=== PATIENT | male | born 1985 | race Caucasian/White ===

== ENCOUNTER 2021-03-31 10:05 | Observation (INO) | payer OTHER ==
[2021-03-31 10:30] LABS: Absolute Neutrophil Ct (ANC) 11.01 (1.4-6.9); BASOPHIL % 0.4 % (0.0-0.4); Basophil (Absolute #) 0.05 (0-0.4); Eosinophil % 0.2 % (0.00-5.0); Eosinophil (Absolute #) 0.03 (0-0.5); Hematocrit 44.9 % (42-50); Hemoglobin 15.1 gm/dl (12.5-18.0); Lymphocyte (Absolute #) 1.56 (1.0-4.6); Lymphocytes % 11.1 % (24.0-44.0); Mean Cell Volume 91.6 fl (78-100); Mean Corpuscular Hemoglobin 30.8 pg (26-32); Mean Corpuscular Hgb Concent. 33.6 g/dl (32-36); Monocyte (Absolute #) 1.41 (0.0-1.3); Neutrophil % 78.3 % (36.0-66.0); Platelet Count 324 K/mm3 (150-450); Red Cell Distribution Width 13.4 % (11.5-14.0); White Blood Count 14.1 K/mm3 (4.0-10.5)
[2021-03-31] MEDS ORDERED: Zofran 4 MG/2 ML VIAL IV ONE (10:32)
[2021-03-31] MEDS ORDERED: TORAdol 30 mg Injection IV ONE (10:32)
[2021-03-31] MEDS ORDERED: Sodium Chloride 0.9% 1000 ML 1,000 ML IV STA ×2 (10:32→12:07)
[2021-03-31] MEDS ORDERED: TORAdol 30 mg Injection ONE (10:35)
[2021-03-31] MEDS ORDERED: Sodium Chloride 0.9% 1000 ML 1,000 ML ONE ×2 (10:35→12:11)
[2021-03-31] MEDS ORDERED: Zofran 4 MG/2 ML VIAL ONE (10:35)
[2021-03-31 10:37] LABS: ALBUMIN 4.8 g/dL (3.5-5.0); ALKALINE PHOSPHATASE 81 U/L (38-126); ANION GAP 17.5 MEQ/L (5-15); BLOOD UREA NITROGEN 11 mg/dL (9-20); CHLORIDE 97 mmol/L (98-107); Calcium 10.1 mg/dL (8.4-10.2); Carbon Dioxide 26 mmol/L (22-30); Creatinine 1 1.39 mg/dL (0.66-1.25); EST GLOMERULAR FILTRATION RATE > 60.0 ML/MIN; Glucose 107 mg/dL (74-106); Potassium 4.4 mmol/L (3.5-5.1); SGOT/AST 24 U/L (17-59); SGPT/ALT 27 U/L (0-50); SODIUM 136 mmol/L (137-145); Total Protein 8.3 g/dL (6.3-8.2)
--- NOTE | 2021-03-31 10:38 | ERPHSYRPT ---
- History of Present Illness Time Seen by Provider: 03/31/21 10:15 Historian: patient Exam Limitations: physical impairment Patient Subjective Stated Complaint: lower abd pain and bilateral flank pain Triage Nursing Assessment: pt to ED c/o lower abd pain and bilateral flank pain onset Friday. reports attempting to take norco 5 for pain relief. rates 8/10 pain now. c/o urinary retention and constipation since Friday as well as intermittent nausea. abd non tender and soft. states the only relief he has found is taking warm showers. reports marijuana use daily. Physician History: 35 years old male presented in the ER with chief complaint of bilateral flank pain and lower quadrant pain for the last 5 days, gradually worsening, moderate to severe intensity, sharp nature, associated with nausea but no vomiting. Has been taking [place] with no significant relief. Partial relief with warm to hot water shower. Does report no bowel movement and having some difficulty urination for 4 days and feels as if he is passing kidney stone but no history of stones in the past. Timing/Duration: day(s) (5), gradual onset, worse Activities at Onset: rest Quality: sharpness Abdominal Pain Onset Location: RLQ, LLQ, flank Pain Radiation: back Severity of Pain-Max: moderate Severity of Pain-Current: severe Modifying Factors: Worsens With: movement, palpation, urinating, position Associated Symptoms: back, nausea, No diarrhea, No shortness of breath, No vomiting Previous symptoms: no prior history Allergies/Adverse Reactions: morphine Allergy (Verified 03/31/21 10:26) "makes me stop breathing cause of my COPD" tramadol Allergy (Verified 03/31/21 10:26) Home Medications: Amlodipine Besylate 5 mg [Norvasc 5 mg] 10 mg PO DAILY 03/31/21 [History] Diazepam [Valium] 10 mg PO DAILY 03/31/21 [History] Divalproex Sodium [Divalproex Sodium ER] 500 mg PO DAILY 03/31/21 [History] Hx Tetanus, Diphtheria Vaccination/Date Given: Yes Hx Influenza Vaccination/Date Given: Yes Hx Pneumococcal Vaccination/Date Given: No Immunizations Up to Date: Yes Travel Risk - International Travel Have you traveled outside of the country in past 3 weeks: No - Coronavirus Screening Are you exhibiting any of the following symptoms?: No Close contact with a COVID-19 positive Pt in past 14-21 Days: No - Vaccine Status Have you recieved a Covid-19 vaccination: Yes [place]: Pfizer - Vaccination Dates Date of 2cond Vaccination (if applicable): november - Review of Systems Constitutional: No Symptoms, Fatigue Eyes: No Symptoms Ears, Nose, & Throat: No Symptoms Respiratory: No Symptoms Cardiac: No Symptoms Abdominal/Gastrointestinal: Abdominal Pain, Nausea, Constipation Genitourinary Symptoms: Dysuria, Flank Pain Musculoskeletal: No Symptoms Skin: No Symptoms Neurological: No Symptoms Psychological: No Symptoms Endocrine: No Symptoms Hematologic/Lymphatic: No Symptoms Immunological/Allergic: No Symptoms - Past Medical History Pertinent Past Medical History: Yes Cardiac History: Hypertension Respiratory History: COPD Psycho-Social History: Bipolar Other Medical History: manic, personality disorder - Past Surgical History Past Surgical History: No - Social History Smoking Status: Never smoker Exposure to second hand smoke: No Drug Use: marijuana Patient Lives Alone: No - Nursing Vital Signs Nursing Vital Signs: Initial Vital Signs Temperature 98.5 F 03/31/21 10:14 Pulse Rate 119 H 03/31/21 10:14 Respiratory Rate 20 03/31/21 10:14 Blood Pressure 142/103 03/31/21 10:14 O2 Sat by Pulse Oximetry 100 03/31/21 10:14 Pain Scale Pain Intensity 7 - Physical Exam General Appearance: no apparent distress, alert, anxiety Eye Exam: PERRL/EOMI, eyes nml inspection Ears, Nose, Throat Exam: normal ENT inspection, pharynx normal Neck Exam: normal inspection, supple, full range of motion Respiratory Exam: normal breath sounds, lungs clear Cardiovascular Exam: normal heart sounds, tachycardia Gastrointestinal/Abdomen Exam: soft, normal bowel sounds, tenderness (Generalized tenderness without rebound) Back Exam: normal inspection, normal range of motion, CVA tenderness (Bilateral) Extremity Exam: normal inspection, normal range of motion Neurologic Exam: alert, oriented x 3, cooperative Skin Exam: normal color SpO2 Interpretation: normal SpO2: 100 O2 Delivery: Room Air Ordered Tests: Active Orders 24 hr Category Date Time Status IV Insertion STAT Care 03/31/21 10:11 Active NPO (ED) STAT Care 03/31/21 10:32 Active ABDOMEN AND PELVIS W/0 CONTRAS [CT] Stat Exams 03/31/21 10:33 Taken BLOOD CULTURE Stat Lab 03/31/21 12:37 Received CBC W DIFF Stat Lab 03/31/21 10:11 Completed CMP Stat Lab 03/31/21 10:11 Completed LIPASE Stat Lab 03/31/21 10:32 Completed UA W/RFX UR CULTURE Stat Lab 03/31/21 10:11 Ordered Urine Triage Profile Stat Lab 03/31/21 10:13 Ordered Medication Summary Discontinued Medications Generic Name Dose Route Start Last Admin Trade Name Sherly PRN Reason Stop Dose Admin Sodium Chloride 1,000 mls @ 999 mls/hr 03/31/21 10:32 03/31/21 11:39 Sodium Chloride 0.9% 1000 Ml IV 03/31/21 11:32 Infused .Q1H1M STA Infusion Sodium Chloride Confirm 03/31/21 10:35 Sodium Chloride 0.9% 1000 Ml Administered 03/31/21 10:36 Dose 1,000 mls @ ud .ROUTE .STK-MED ONE Sodium Chloride 1,000 mls @ 999 mls/hr 03/31/21 12:07 03/31/21 12:11 Sodium Chloride 0.9% 1000 Ml IV 03/31/21 13:07 999 mls/hr .Q1H1M STA Administration Sodium Chloride Confirm 03/31/21 12:11 Sodium Chloride 0.9% 1000 Ml Administered 03/31/21 12:12 Dose 1,000 mls @ ud .ROUTE .STK-MED ONE Ceftriaxone Sodium/Dextrose 2 g in 50 mls @ 100 mls/hr 03/31/21 12:22 03/31/21 13:10 Rocephin 2 Gm-D5w 50ml Bag IV 03/31/21 12:51 200 ml/hr STAT STA 200 mls/hr Administration Ceftriaxone Sodium/Dextrose Confirm 03/31/21 13:09 Rocephin 2 Gm-D5w 50ml Bag Administered 03/31/21 13:10 Dose 2 g in 50 mls @ ud IV .STK-MED ONE Ketorolac Tromethamine 30 mg 03/31/21 10:32 03/31/21 10:38 Ketorolac Tromethamine 30 Mg/Ml Inj IV 03/31/21 10:33 30 mg STAT ONE Administration Ketorolac Tromethamine Confirm 03/31/21 10:35 Ketorolac Tromethamine 30 Mg/Ml Inj Administered 03/31/21 10:36 Dose 30 mg .ROUTE .STK-MED ONE Ondansetron HCl 4 mg 03/31/21 10:32 03/31/21 10:38 Ondansetron Hcl 4 Mg/2 Ml Vial IV 03/31/21 10:33 4 mg STAT ONE Administration Ondansetron HCl Confirm 03/31/21 10:35 Ondansetron Hcl 4 Mg/2 Ml Vial Administered 03/31/21 10:36 Dose 4 mg .ROUTE .K-MED ONE Lab/Rad Data: Laboratory Result Diagrams 03/31/21 10:11 03/31/21 10:11 Laboratory Results 03/31/21 03/31/21 03/31/21 Range/Units 10:32 10:11 10:11 WBC 14.1 H (4.0-10.5) K/mm3 RBC 4.90 (4.1-5.6) M/mm3 Hgb 15.1 (12.5-18.0) gm/dl Hct 44.9 (42-50) % MCV 91.6 (78-100) fl MCH 30.8 (26-32) pg MCHC 33.6 (32-36) g/dl RDW 13.4 (11.5-14.0) % Plt Count 324 (150-450) K/mm3 MPV 10.0 (7.5-11.0) fl Gran % 78.3 H (36.0-66.0) % Eos # (Auto) 0.03 (0-0.5) Absolute Lymphs (auto) 1.56 (1.0-4.6) Absolute Monos (auto) 1.41 H (0.0-1.3) Lymphocytes % 11.1 L (24.0-44.0) % Monocytes % 10.0 (0.0-12.0) % Eosinophils % 0.2 (0.00-5.0) % Basophils % 0.4 (0.0-0.4) % Absolute Granulocytes 11.01 H (1.4-6.9) Basophils # 0.05 (0-0.4) Sodium 136 L (137-145) mmol/L Potassium 4.4 (3.5-5.1) mmol/L Chloride 97 L (98-107) mmol/L Carbon Dioxide 26 (22-30) mmol/L Anion Gap 17.5 H (5-15) MEQ/L BUN 11 (9-20) mg/dL Creatinine 1.39 H (0.66-1.25) mg/dL Estimated GFR > 60.0 ML/MIN Glucose 107 H (74-106) mg/dL Calcium 10.1 (8.4-10.2) mg/dL Total Bilirubin 0.60 (0.2-1.3) mg/dL AST 24 (17-59) U/L ALT 27 (0-50) U/L Alkaline Phosphatase 81 (38-126) U/L Serum Total Protein 8.3 H (6.3-8.2) g/dL Albumin 4.8 (3.5-5.0) g/dL Lipase 31 (23-300) U/L - Progress Progress: improved, pain not gone completely, re-examined Progress Note: 03/31/21 13:17 He is given Toradol for symptomatic relief along with fluids. Work-up showed white count of 14, mild JAVI and CT consistent with bilateral perinephric stranding suggesting pyelonephritis. Given a dose of Rocephin in the ER and will continue on. Discussed with , reviewed history, work-up and patient is accepted for admission. Discussed with : Izzy Will see patient in: hospital (observation) Counseled pt/family regarding: drug and/or alcohol abuse, lab results, diagnosis, rad results, smoking cessation - Departure Departure Disposition: Observation Clinical Impression: Acute pyelonephritis Condition: Stable Critical Care Time: No Referrals: TANA MYERS MD [Primary Care Provider] -
[2021-03-31] MEDS ORDERED: ROCEPHIN 2 Gm-D5w 50ML BAG** 2 G/50 ML IVPB IV STA (12:22)
[2021-03-31] MEDS ORDERED: ROCEPHIN 2 Gm-D5w 50ML BAG** 2 G/50 ML IVPB IV ONE (13:09)
[2021-03-31] MEDS ORDERED: DUONEB 0.5-3 MG/3 ml Neb IH PRN (14:37)
[2021-03-31] MEDS ORDERED: Zofran 4 MG/2 ML VIAL IV PRN (14:37)
[2021-03-31 14:44] LABS: Appearance SLIGHTLY CLOUDY (CLEAR); Bacteria MANY /HPF (NEGATIVE); Bilirubin NEGATIVE (NEGATIVE); Blood MODERATE Ery/ul (0-5); Epithelial Cells RARE /HPF (FEW); Glucose NEGATIVE (NEGATIVE); Ketones NEGATIVE (NEGATIVE); Leukocyte Esterase MODERATE (NEGATIVE); Mucus SLIGHT /HPF (NEGATIVE); Nitrite POSITIVE (NEGATIVE); Protein,Urine Dip 30 (Negative); Specific Gravity 1.008 (1.005-1.025); Urobilinogen NEGATIVE mg/dL (0-1); WBC 51-100 /HPF (0-5)
[2021-03-31 14:57] LABS: Barbiturate,Urine NEGATIVE (NEGATIVE); Benzodiazepine,Urine POSITIVE (NEGATIVE); Methadone,Urine NEGATIVE (NEGATIVE); Opiate,Urine NEGATIVE (NEGATIVE); PCP,Urine NEGATIVE (NEGATIVE); THC,Urine POSITIVE (NEGATIVE)
[2021-03-31 15:03] LABS: Cocaine,Urine NEGATIVE (NEGATIVE)
[2021-03-31 15:14] LABS: Amphetamine,Urine POSITIVE (NEGATIVE)
[2021-03-31] MEDS: Sodium Chloride 0.9% 1000 ML 1,000 ML IV SCH (16:03)
[2021-03-31] MEDS: Valium 5 MG PO SCH ×2 (16:03→21:53)
--- NOTE | 2021-03-31 17:49 | PCM.HP ---
History of Present Illness - Chief Complaint Chief Complaint: Pyelonephritis/Colitis History of Present Illness: is a 35 year old male complaint of bilateral flank pain and lower quadrant pain for the last 5 days, gradually worsening, moderate to severe intensity, sharp nature, associated with nausea but no vomiting. Has been taking Follett with no significant relief. Partial relief with warm to hot water shower. Does report no bowel movement and having some difficulty urination for 4 days and feels as if he is passing kidney stone but no history of stones in the past. - Review of Systems Constitutional: Fever, No Chills Eyes: No Symptoms Ears, Nose, & Throat: No Symptoms Respiratory: No Cough, No Short Of Breath Cardiac: No Chest Pain, No Edema, No Syncope Abdominal/Gastrointestinal: No Abdominal Pain, No Nausea, No Vomiting, No Diarrhea Genitourinary Symptoms: Dysuria, Frequency, Hesitancy, Urgency Musculoskeletal: No Back Pain, No Neck Pain Skin: No Rash Neurological: No Dizziness, No Focal Weakness, No Sensory Changes Psychological: No Symptoms Endocrine: No Symptoms Hematologic/Lymphatic: No Symptoms Immunological/Allergic: No Symptoms Medications & Allergies Home Medications: Home Medication List Albuterol Common Canister [Ventolin Common Canister] 2 inh IH QID PRN PRN 03/31/21 [History Confirmed 03/31/21] Amlodipine Besylate 5 mg [Norvasc 5 mg] 5 mg PO DAILY 03/31/21 [History Confirmed 03/31/21] Benazepril HCl 10 mg [Lotensin 10 MG] 10 mg PO DAILY 03/31/21 [History Confirmed 03/31/21] Diazepam [Valium] 10 mg PO TID 03/31/21 [History Confirmed 03/31/21] Divalproex Sodium [Divalproex Sodium ER] 1,000 mg PO DAILY 03/31/21 [History Confirmed 03/31/21] Trazodone HCl 150 mg PO HS 03/31/21 [History Confirmed 03/31/21] Allergies/Adverse Reactions: Allergies Allergy/AdvReac Type Severity Reaction Status Date / Time morphine Allergy Shortness Verified 03/31/21 14:44 of Breath tramadol AdvReac Verified 03/31/21 14:44 - Past Medical History Past Medical History: Yes Neurological History: Seizures ENT History: No Pertinent History Cardiac History: Hypertension Respiratory History: COPD Endocrine Medical History: No Pertinent History Musculoskelatal History: Arthritis GI Medical History: Colitis History: Other Pyscho-Social History: Anxiety, Bipolar, Depression Male Reproductive Disorders: No Pertinent History Comment: manic, personality disorder - Past Surgical History Past Surgical History: Yes Neuro Surgical History: No Pertinent History Cardiac History: No Pertinent History Respiratory Surgery: No Pertinent History GI Surgical History: No Pertinent History Genitourinary Surgical Hx: No Pertinent History Musculskeletal Surgical Hx: No Pertinent History Male Surgical History: Other Other Surgical History: surgical circumcision around 4 years old - Social History Smoking Status: Current every day smoker How long have you smoked: 30 years Exposure to second hand smoke: No Alcohol: None Drug Use: marijuana - Physical Exam Vital Signs: Vital Signs - 24 hr Temp Pulse Resp BP Pulse Ox 03/31/21 16:30 95 03/31/21 14:56 98.2 F 84 20 156/98 99 03/31/21 14:41 98.2 F 84 20 156/98 99 03/31/21 14:37 98.2 F 84 20 156/98 99 03/31/21 14:00 92 H 16 151/91 97 03/31/21 13:18 100 03/31/21 13:00 104 H 18 139/92 99 03/31/21 12:04 108 H 18 119/87 96 03/31/21 11:20 117 H 17 129/79 95 03/31/21 10:14 98.5 F 119 H 20 142/103 100 General Appearance: no apparent distress, alert Neurologic Exam: alert, oriented x 3, cooperative, normal mood/affect, sensation nml, No motor deficits Eye Exam: PERRL/EOMI, eyes nml inspection Ears, Nose, Throat Exam: normal ENT inspection, TMs normal, pharynx normal, moist mucous membranes Neck Exam: normal inspection, non-tender, supple, full range of motion Respiratory Exam: normal breath sounds, lungs clear, No respiratory distress Cardiovascular Exam: regular rate/rhythm, normal heart sounds, normal peripheral pulses Gastrointestinal/Abdomen Exam: soft, normal bowel sounds, No tenderness, No mass Back Exam: normal inspection, normal range of motion, No CVA tenderness, No vertebral tenderness Extremity Exam: normal inspection, normal range of motion, pelvis stable Skin Exam: normal color, warm, dry, No rash Lymphatic Exam: No adenopathy Results - Labs Lab/Micro Results: Lab Results-Last 24 Hours 03/31/21 03/31/21 03/31/21 Range/Units 10:11 10:11 10:32 WBC 14.1 H (4.0-10.5) K/mm3 RBC 4.90 (4.1-5.6) M/mm3 Hgb 15.1 (12.5-18.0) gm/dl Hct 44.9 (42-50) % MCV 91.6 (78-100) fl MCH 30.8 (26-32) pg MCHC 33.6 (32-36) g/dl RDW 13.4 (11.5-14.0) % Plt Count 324 (150-450) K/mm3 MPV 10.0 (7.5-11.0) fl Gran % 78.3 H (36.0-66.0) % Eos # (Auto) 0.03 (0-0.5) Absolute Lymphs (auto) 1.56 (1.0-4.6) Absolute Monos (auto) 1.41 H (0.0-1.3) Lymphocytes % 11.1 L (24.0-44.0) % Monocytes % 10.0 (0.0-12.0) % Eosinophils % 0.2 (0.00-5.0) % Basophils % 0.4 (0.0-0.4) % Absolute Granulocytes 11.01 H (1.4-6.9) Basophils # 0.05 (0-0.4) Sodium 136 L (137-145) mmol/L Potassium 4.4 (3.5-5.1) mmol/L Chloride 97 L (98-107) mmol/L Carbon Dioxide 26 (22-30) mmol/L Anion Gap 17.5 H (5-15) MEQ/L BUN 11 (9-20) mg/dL Creatinine 1.39 H (0.66-1.25) mg/dL Estimated GFR > 60.0 ML/MIN Glucose 107 H (74-106) mg/dL Calcium 10.1 (8.4-10.2) mg/dL Total Bilirubin 0.60 (0.2-1.3) mg/dL AST 24 (17-59) U/L ALT 27 (0-50) U/L Alkaline Phosphatase 81 (38-126) U/L Serum Total Protein 8.3 H (6.3-8.2) g/dL Albumin 4.8 (3.5-5.0) g/dL Lipase 31 (23-300) U/L Urine Color (YELLOW) Urine Appearance (CLEAR) Urine pH (5-6) Ur Specific Ralls (1.005-1.025) Urine Protein (Negative) Urine Ketones (NEGATIVE) Urine Blood (0-5) Emiliano/ul Urine Nitrite (NEGATIVE) Urine Bilirubin (NEGATIVE) Urine Urobilinogen (0-1) mg/dL Ur Leukocyte Esterase (NEGATIVE) Urine WBC (Auto) (0-5) /HPF Urine RBC (Auto) (0-2) /HPF U Epithel Cells (Auto) (FEW) /HPF Urine Bacteria (Auto) (NEGATIVE) /HPF Urine Mucus (Auto) (NEGATIVE) /HPF Urine Culture Reflexed (NO) Urine Glucose (NEGATIVE) mg/dL Urine Opiates Level (NEGATIVE) Ur Methadone (NEGATIVE) Urine Barbiturates (NEGATIVE) Ur Phencyclidine (PCP) (NEGATIVE) Urine Amphetamine (NEGATIVE) U Benzodiazepine Level (NEGATIVE) Urine Cocaine (NEGATIVE) Urine Marijuana (THC) (NEGATIVE) SARS-CoV-2 (PCR) (NEGATIVE) 03/31/21 03/31/21 03/31/21 Range/Units 13:16 14:30 14:30 WBC (4.0-10.5) K/mm3 RBC (4.1-5.6) M/mm3 Hgb (12.5-18.0) gm/dl Hct (42-50) % MCV (78-100) fl MCH (26-32) pg MCHC (32-36) g/dl RDW (11.5-14.0) % Plt Count (150-450) K/mm3 MPV (7.5-11.0) fl Gran % (36.0-66.0) % Eos # (Auto) (0-0.5) Absolute Lymphs (auto) (1.0-4.6) Absolute Monos (auto) (0.0-1.3) Lymphocytes % (24.0-44.0) % Monocytes % (0.0-12.0) % Eosinophils % (0.00-5.0) % Basophils % (0.0-0.4) % Absolute Granulocytes (1.4-6.9) Basophils # (0-0.4) Sodium (137-145) mmol/L Potassium (3.5-5.1) mmol/L Chloride (98-107) mmol/L Carbon Dioxide (22-30) mmol/L Anion Gap (5-15) MEQ/L BUN (9-20) mg/dL Creatinine (0.66-1.25) mg/dL Estimated GFR ML/MIN Glucose (74-106) mg/dL Calcium (8.4-10.2) mg/dL Total Bilirubin (0.2-1.3) mg/dL AST (17-59) U/L ALT (0-50) U/L Alkaline Phosphatase (38-126) U/L Serum Total Protein (6.3-8.2) g/dL Albumin (3.5-5.0) g/dL Lipase (23-300) U/L Urine Color YELLOW (YELLOW) Urine Appearance SLIGHTLY CLOUDY (CLEAR) Urine pH 6.0 (5-6) Ur Specific Ralls 1.008 (1.005-1.025) Urine Protein 30 (Negative) Urine Ketones NEGATIVE (NEGATIVE) Urine Blood MODERATE (0-5) Emiliano/ul Urine Nitrite POSITIVE (NEGATIVE) Urine Bilirubin NEGATIVE (NEGATIVE) Urine Urobilinogen NEGATIVE (0-1) mg/dL Ur Leukocyte Esterase MODERATE (NEGATIVE) Urine WBC (Auto) 51-100 (0-5) /HPF Urine RBC (Auto) 3-5 (0-2) /HPF U Epithel Cells (Auto) RARE (FEW) /HPF Urine Bacteria (Auto) MANY (NEGATIVE) /HPF Urine Mucus (Auto) SLIGHT (NEGATIVE) /HPF Urine Culture Reflexed YES (NO) Urine Glucose NEGATIVE (NEGATIVE) mg/dL Urine Opiates Level NEGATIVE (NEGATIVE) Ur Methadone NEGATIVE (NEGATIVE) Urine Barbiturates NEGATIVE (NEGATIVE) Ur Phencyclidine (PCP) NEGATIVE (NEGATIVE) Urine Amphetamine POSITIVE (NEGATIVE) U Benzodiazepine Level POSITIVE (NEGATIVE) Urine Cocaine NEGATIVE (NEGATIVE) Urine Marijuana (THC) POSITIVE (NEGATIVE) SARS-CoV-2 (PCR) NEGATIVE (NEGATIVE) - Radiology Impressions Radiology Exams & Impressions: Radiology Procedures Category Date Time Status ABDOMEN AND PELVIS W/0 CONTRAS [CT] Stat Exams 03/31/21 10:33 Taken - Other Procedures and Tests Respiratory Therapy 03/31/21 16:30 Respiratory Therapy Assessment DAILY Assessment/Plan (1) Acute pyelonephritis Current Visit: Yes Status: Acute Assessment & Plan: Chief Complaint Diagnosis Pyelonephritis/Colitis Allergies Allergy/AdvReac Type Severity Reaction Status Date / Time morphine Allergy Shortness Verified 03/31/21 14:44 of Breath tramadol AdvReac Verified 03/31/21 14:44 Vital Signs (Last 24 hours) Temp Pulse Resp BP Pulse Ox 03/31/21 16:30 95 03/31/21 14:56 98.2 F 84 20 156/98 99 03/31/21 14:41 98.2 F 84 20 156/98 99 03/31/21 14:37 98.2 F 84 20 156/98 99 03/31/21 14:00 92 H 16 151/91 97 03/31/21 13:18 100 03/31/21 13:00 104 H 18 139/92 99 03/31/21 12:04 108 H 18 119/87 96 03/31/21 11:20 117 H 17 129/79 95 03/31/21 10:14 98.5 F 119 H 20 142/103 100 Home Medications Medication Instructions Recorded Confirmed Last Taken Type Albuterol Common Canister 2 inh IH QID PRN PRN 03/31/21 03/31/21 03/24/21 History [Ventolin Common Canister] Amlodipine Besylate 5 mg 5 mg PO DAILY 03/31/21 03/31/21 03/31/21 History [Norvasc 5 mg] Benazepril HCl 10 mg [Lotensin 10 mg PO DAILY 03/31/21 03/31/21 03/31/21 History 10 MG] Diazepam [Valium] 10 mg PO TID 03/31/21 03/31/21 03/30/21 22:00 History Divalproex Sodium [Divalproex 1,000 mg PO DAILY 03/31/21 03/31/21 03/30/21 History Sodium ER] Trazodone HCl 150 mg PO HS 03/31/21 03/31/21 03/30/21 History Current Medications Generic Name Dose Route Start Last Admin Trade Name Freq PRN Reason Stop Dose Admin Acetaminophen 650 mg 03/31/21 14:37 Acetaminophen 325 Mg Tablet PO 04/30/21 14:36 Q4H PRN PRN PAIN AND/OR FEVER Albuterol/Ipratropium 3 ml 03/31/21 14:37 Ipratropium/Albuterol Sulfate 3 Ml Ampul.Neb IH 04/30/21 14:36 Q4HPRN PRN SHORTNESS OF BREATH/WHEEZING Amlodipine Besylate 5 mg 04/01/21 10:00 Amlodipine Besylate 5 Mg Tablet PO 05/01/21 09:59 DAILY KANE Benazepril HCl 10 mg 04/01/21 10:00 Benazepril Hcl 10 Mg Tablet PO 05/01/21 09:59 DAILY KANE Diazepam 10 mg 03/31/21 16:00 03/31/21 16:03 Diazepam 5 Mg Tablet PO 04/30/21 15:59 10 mg TID KANE Administration Divalproex Sodium 1,000 mg 04/01/21 10:00 Divalproex Sodium 250 Mg Tab Extended Release PO 05/01/21 09:59 DAILY KANE Sodium Chloride 1,000 mls @ 100 mls/hr 03/31/21 14:37 03/31/21 16:03 Sodium Chloride 0.9% 1000 Ml IV 04/30/21 14:36 100 mls/hr .Q10H KANE Administration Ceftriaxone Sodium/Dextrose 2 g in 50 mls @ 100 mls/hr 04/01/21 10:00 Rocephin 2 Gm-D5w 50ml Bag IV 04/04/21 09:59 Q24H10 KANE Ondansetron HCl 4 mg 03/31/21 14:37 Ondansetron Hcl 4 Mg/2 Ml Vial IV 04/30/21 14:36 Q6H PRN PRN NAUSEA/VOMITING Pantoprazole Sodium 40 mg 04/01/21 10:00 Pantoprazole 40 Mg Vial IV 05/01/21 09:59 Q24H10 KANE Trazodone HCl 150 mg 03/31/21 22:00 Trazodone Hcl 150 Mg Tablet PO 04/30/21 21:59 HS KANE Discontinued Medications Generic Name Dose Route Start Last Admin Trade Name Freq PRN Reason Stop Dose Admin Sodium Chloride 1,000 mls @ 999 mls/hr 03/31/21 10:32 03/31/21 11:39 Sodium Chloride 0.9% 1000 Ml IV 03/31/21 11:32 Infused .Q1H1M STA Infusion Sodium Chloride Confirm 03/31/21 10:35 Sodium Chloride 0.9% 1000 Ml Administered 03/31/21 10:36 Dose 1,000 mls @ ud .ROUTE .STK-MED ONE Sodium Chloride 1,000 mls @ 999 mls/hr 03/31/21 12:07 03/31/21 13:12 Sodium Chloride 0.9% 1000 Ml IV 03/31/21 13:07 Infused .Q1H1M STA Infusion Sodium Chloride Confirm 03/31/21 12:11 Sodium Chloride 0.9% 1000 Ml Administered 03/31/21 12:12 Dose 1,000 mls @ ud .ROUTE .STK-MED ONE Ceftriaxone Sodium/Dextrose 2 g in 50 mls @ 100 mls/hr 03/31/21 12:22 03/31/21 13:25 Rocephin 2 Gm-D5w 50ml Bag IV 03/31/21 12:51 Infused STAT STA Infusion Ceftriaxone Sodium/Dextrose Confirm 03/31/21 13:09 Rocephin 2 Gm-D5w 50ml Bag Administered 03/31/21 13:10 Dose 2 g in 50 mls @ ud IV .STK-MED ONE Ketorolac Tromethamine 30 mg 03/31/21 10:32 03/31/21 10:38 Ketorolac Tromethamine 30 Mg/Ml Inj IV 03/31/21 10:33 30 mg STAT ONE Administration Ketorolac Tromethamine Confirm 03/31/21 10:35 Ketorolac Tromethamine 30 Mg/Ml Inj Administered 03/31/21 10:36 Dose 30 mg .ROUTE .STK-MED ONE Ondansetron HCl 4 mg 03/31/21 10:32 03/31/21 10:38 Ondansetron Hcl 4 Mg/2 Ml Vial IV 03/31/21 10:33 4 mg STAT ONE Administration Ondansetron HCl Confirm 03/31/21 10:35 Ondansetron Hcl 4 Mg/2 Ml Vial Administered 03/31/21 10:36 Dose 4 mg .ROUTE .STK-MED ONE Intake & Output (Last 24 hours) 03/29/21 03/30/21 03/31/21 04/01/21 11:59 11:59 11:59 11:59 Output Total 450 Balance -450 Weight 87.8 kg 93.6 kg Microbiology Results (Last 24 hours) 03/31/21 14:30 Clean Catch Midstream Urine Culture - Pending 03/31/21 12:37 Blood Blood Culture Gram Stain - Pending 03/31/21 12:37 Blood Blood Culture - Pending 03/31/21 12:32 Blood Blood Culture Gram Stain - Pending 03/31/21 12:32 Blood Blood Culture - Pending Laboratory Results (Last 24 hours) 03/31/21 03/31/21 03/31/21 14:30 14:30 13:16 WBC RBC Hgb Hct MCV MCH MCHC RDW Plt Count MPV Gran % Eos # (Auto) Absolute Lymphs (auto) Absolute Monos (auto) Lymphocytes % Monocytes % Eosinophils % Basophils % Absolute Granulocytes Basophils # Sodium Potassium Chloride Carbon Dioxide Anion Gap BUN Creatinine Estimated GFR Glucose Calcium Total Bilirubin AST ALT Alkaline Phosphatase Serum Total Protein Albumin Lipase Urine Color YELLOW Urine Appearance SLIGHTLY CLOUDY Urine pH 6.0 Ur Specific Ralls 1.008 Urine Protein 30 Urine Ketones NEGATIVE Urine Blood MODERATE Urine Nitrite POSITIVE Urine Bilirubin NEGATIVE Urine Urobilinogen NEGATIVE Ur Leukocyte Esterase MODERATE Urine WBC (Auto) 51-100 Urine RBC (Auto) 3-5 U Epithel Cells (Auto) RARE Urine Bacteria (Auto) MANY Urine Mucus (Auto) SLIGHT Urine Culture Reflexed YES Urine Glucose NEGATIVE Urine Opiates Level NEGATIVE Ur Methadone NEGATIVE Urine Barbiturates NEGATIVE Ur Phencyclidine (PCP) NEGATIVE Urine Amphetamine POSITIVE U Benzodiazepine Level POSITIVE Urine Cocaine NEGATIVE Urine Marijuana (THC) POSITIVE SARS-CoV-2 (PCR) NEGATIVE 03/31/21 03/31/21 03/31/21 10:32 10:11 10:11 WBC 14.1 H RBC 4.90 Hgb 15.1 Hct 44.9 MCV 91.6 MCH 30.8 MCHC 33.6 RDW 13.4 Plt Count 324 MPV 10.0 Gran % 78.3 H Eos # (Auto) 0.03 Absolute Lymphs (auto) 1.56 Absolute Monos (auto) 1.41 H Lymphocytes % 11.1 L Monocytes % 10.0 Eosinophils % 0.2 Basophils % 0.4 Absolute Granulocytes 11.01 H Basophils # 0.05 Sodium 136 L Potassium 4.4 Chloride 97 L Carbon Dioxide 26 Anion Gap 17.5 H BUN 11 Creatinine 1.39 H Estimated GFR > 60.0 Glucose 107 H Calcium 10.1 Total Bilirubin 0.60 AST 24 ALT 27 Alkaline Phosphatase 81 Serum Total Protein 8.3 H Albumin 4.8 Lipase 31 Urine Color Urine Appearance Urine pH Ur Specific Ralls Urine Protein Urine Ketones Urine Blood Urine Nitrite Urine Bilirubin Urine Urobilinogen Ur Leukocyte Esterase Urine WBC (Auto) Urine RBC (Auto) U Epithel Cells (Auto) Urine Bacteria (Auto) Urine Mucus (Auto) Urine Culture Reflexed Urine Glucose Urine Opiates Level Ur Methadone Urine Barbiturates Ur Phencyclidine (PCP) Urine Amphetamine U Benzodiazepine Level Urine Cocaine Urine Marijuana (THC) SARS-CoV-2 (PCR) Orders (Last 24 hours) Category Date Time Status Bedrest ROUTINE Activity 03/31/21 14:37 Active Up With Assistance ROUTINE Activity 03/31/21 14:37 Active Code Status Order ROUTINE Care 03/31/21 14:37 Active Fall Protocol ROUTINE Care 03/31/21 14:37 Active IV Care Q6H Care 03/31/21 14:37 Active IV Insertion STAT Care 03/31/21 10:11 Completed NPO (ED) STAT Care 03/31/21 10:[address] in Observation ROUTINE Care 03/31/21 14:37 Active Bill Agarwal ROUTINE Care 03/31/21 14:37 Active [employer]/Discharge Plan ROUTINE Cons 03/31/21 14:56 Active House Regular Diet Diet 03/31/21 Dinner Active ABDOMEN AND PELVIS W/0 CONTRAS [CT] Stat Exams 03/31/21 10:33 Taken BLOOD CULTURE Stat Lab 03/31/21 12:37 Received CBC W DIFF AM.LAB Lab 04/01/21 04:00 Ordered CBC W DIFF Stat Lab 03/31/21 10:11 Completed CMP AM.LAB Lab 04/01/21 04:00 Ordered CMP Stat Lab 03/31/21 10:11 Completed CULTURE,URINE Stat Lab 03/31/21 14:30 Received LIPASE Stat Lab 03/31/21 10:32 Completed UA W/RFX UR CULTURE Stat Lab 03/31/21 14:30 Completed Urine Triage Profile Stat Lab 03/31/21 14:30 Completed Acetaminophen 325 mg [Tylenol 325 mg] Med 03/31/21 14:37 Active 650 mg PO Q4H PRN PRN Albuterol/Ipratropium 3ml Neb* [DUONEB 0.5-3 MG/3 ml Med 03/31/21 14:37 Active Neb] 3 ml IH Q4HPRN PRN Amlodipine Besylate 5 mg [Norvasc 5 mg] Med 04/01/21 10:00 Active 5 mg PO DAILY Benazepril HCl 10 mg [Lotensin 10 MG] Med 04/01/21 10:00 Active 10 mg PO DAILY Ceftriaxone 2 GM/50 ML PREMIX* [ROCEPHIN 2 Gm-D5w 50ML Med 04/01/21 10:00 Active BAG] 2 g in 50 ml IV Q24H10 Ceftriaxone 2 GM/50 ML PREMIX* [ROCEPHIN 2 Gm-D5w 50ML Med 03/31/21 12:22 Discontinued BAG] 2 g in 50 ml IV STAT Ceftriaxone 2 GM/50 ML PREMIX* [ROCEPHIN 2 Gm-D5w 50ML Med 03/31/21 13:09 Discontinued BAG] 2 g in 50 ml IV UD Diazepam 5 mg [Valium 5 MG] Med 03/31/21 16:00 Active 10 mg PO TID Divalproex Sodium ER 250 mg [Depakote EXTENDED Med 04/01/21 10:00 Active RELEASE 250 MG] 1,000 mg PO DAILY KETOROLAC trometh 30 mg Inj [TORAdol 30 mg Injection Med 03/31/21 10:35 Discontinued ] 30 mg .ROUTE .STK-MED ONE KETOROLAC trometh 30 mg Inj [TORAdol 30 mg Injection Med 03/31/21 10:32 Discontinued ] 30 mg IV STAT ONE NaCl 0.9% 1000 ml [Sodium Chloride 0.9% 1000 ML] 1,000 Med 03/31/21 10:35 Discontinued ml .ROUTE UD NaCl 0.9% 1000 ml [Sodium Chloride 0.9% 1000 ML] 1,000 Med 03/31/21 12:11 Discontinued ml .ROUTE UD NaCl 0.9% 1000 ml [Sodium Chloride 0.9% 1000 ML] 1,000 Med 03/31/21 14:37 Active ml IV 100 mls/hr NaCl 0.9% 1000 ml [Sodium Chloride 0.9% 1000 ML] 1,000 Med 03/31/21 10:32 Discontinued ml IV 999 mls/hr NaCl 0.9% 1000 ml [Sodium Chloride 0.9% 1000 ML] 1,000 Med 03/31/21 12:07 Discontinued ml IV 999 mls/hr Ondansetron HCl 4 mg/2 ml [Zofran 4 MG/2 ML VIAL] Med 03/31/21 10:35 Discontinued 4 mg .ROUTE .STK-MED ONE Ondansetron HCl 4 mg/2 ml [Zofran 4 MG/2 ML VIAL] Med 03/31/21 14:37 Active 4 mg IV Q6H PRN PRN Ondansetron HCl 4 mg/2 ml [Zofran 4 MG/2 ML VIAL] Med 03/31/21 10:32 Discontinued 4 mg IV STAT ONE Pantoprazole 40 mg [Protonix 40 mg IV] Med 04/01/21 10:00 Active 40 mg IV Q24H10 Trazodone HCl 150 mg [Desyrel 150 MG] Med 03/31/21 22:00 Active 150 mg PO HS Pulse Oximetry .spot check RT 03/31/21 16:30 Active Respiratory Therapy Assessment DAILY RT 03/31/21 16:30 Active Transfer Order Routine Transfer 03/31/21 Completed Code(s): N10 - ACUTE PYELONEPHRITIS
[2021-03-31] MEDS: TYLENOL 325 MG PO PRN (18:38)
--- NOTE | 2021-03-31 21:46 | XRAY ---
Indication: Bilateral flank pain. Multiple contiguous axial images obtained through the abdomen and pelvis without contrast using renal stone protocol. Comparison: None Lung bases are clear. Heart is not enlarged. No renal calculus or evidence for obstructive uropathy in either system. Noncontrasted stomach and bowel loops appear nonobstructed. Normal appendix. No free fluid/air. Remaining liver, gallbladder, pancreas, spleen, adrenal glands, kidneys, ureters, bladder, and aorta are unremarkable for noncontrast exam. Osseous structures intact. No ventral or inguinal hernias. Impression: 1. Negative renal calculus or evidence for obstructive uropathy. 2. Remaining CT abdomen/pelvis without contrast exam is negative. Comment: Preliminary interpretation made by [facility]. No critical discrepancy.
[2021-03-31] MEDS: Desyrel 150 MG PO SCH (21:54)
[2021-03-31] MEDS ORDERED: NON-FORMULARY ITEM (Diazepam [Valium] 10 MG Tablet) PO SCH (22:00)
[2021-03-31] MEDS: MOTRIN 400 MG PO PRN (22:01)
[2021-04-01] MEDS: TYLENOL 325 MG PO PRN ×2 (01:41→17:14)
[2021-04-01] MEDS: Sodium Chloride 0.9% 1000 ML 1,000 ML IV SCH ×3 (01:41→19:40)
[2021-04-01] MEDS ORDERED: Tums EX 750 MG PO PRN (05:17)
[2021-04-01] MEDS ORDERED: PROTONIX 40 MG IV IV ONE (05:33)
[2021-04-01] MEDS: PROTONIX 40 MG IV IV SCH (05:37)
[2021-04-01] MEDS: Valium 5 MG PO SCH ×3 (05:43→21:37)
[2021-04-01 06:14] LABS: Absolute Neutrophil Ct (ANC) 10.01 (1.4-6.9); BASOPHIL % 0.2 % (0.0-0.4); Basophil (Absolute #) 0.02 (0-0.4); Eosinophil % 0.2 % (0.00-5.0); Eosinophil (Absolute #) 0.02 (0-0.5); Hematocrit 43.1 % (42-50); Hemoglobin 13.8 gm/dl (12.5-18.0); Lymphocyte (Absolute #) 1.35 (1.0-4.6); Lymphocytes % 10.7 % (24.0-44.0); Mean Cell Volume 93.3 fl (78-100); Mean Corpuscular Hemoglobin 29.9 pg (26-32); Mean Platelet Volume 10.3 fl (7.5-11.0); Monocyte (Absolute #) 1.19 (0.0-1.3); Monocytes % 9.5 % (0.0-12.0); Neutrophil % 79.4 % (36.0-66.0); Platelet Count 247 K/mm3 (150-450); Red Blood Count 4.62 M/mm3 (4.1-5.6); Red Cell Distribution Width 13.3 % (11.5-14.0); White Blood Count 12.6 K/mm3 (4.0-10.5)
[2021-04-01 06:17] LABS: ALKALINE PHOSPHATASE 71 U/L (38-126); ANION GAP 14.2 MEQ/L (5-15); BLOOD UREA NITROGEN 13 mg/dL (9-20); CHLORIDE 103 mmol/L (98-107); Calcium 9.2 mg/dL (8.4-10.2); Carbon Dioxide 24 mmol/L (22-30); Creatinine 1 1.22 mg/dL (0.66-1.25); EST GLOMERULAR FILTRATION RATE > 60.0 ML/MIN; Glucose 101 mg/dL (74-106); SGOT/AST 31 U/L (17-59); SGPT/ALT 39 U/L (0-50); SODIUM 137 mmol/L (137-145); Total Protein 7.1 g/dL (6.3-8.2)
--- NOTE | 2021-04-01 07:22 | PCM.NOTE ---
Date and Time: 04/01/21719 Subjective Assessment: doing ok, had fever last night - Review of Systems Constitutional: Fever, No Chills Eyes: No Symptoms Ears, Nose, & Throat: No Symptoms Respiratory: No Cough, No Short Of Breath Cardiac: No Chest Pain, No Edema, No Syncope Abdominal/Gastrointestinal: No Abdominal Pain, No Nausea, No Vomiting, No Diarrhea Genitourinary Symptoms: No Dysuria Musculoskeletal: No Back Pain, No Neck Pain Skin: No Rash Neurological: No Dizziness, No Focal Weakness, No Sensory Changes Psychological: No Symptoms Endocrine: No Symptoms Hematologic/Lymphatic: No Symptoms Immunological/Allergic: No Symptoms Objective Exam General Appearance: no apparent distress, alert Neurologic Exam: alert, oriented x 3, cooperative, normal mood/affect, nml cerebellar function, sensation nml, No motor deficits Skin Exam: normal color, warm, dry Eye Exam: PERRL, EOMI, eyes nml inspection Ears, Nose, Throat Exam: normal ENT inspection, pharynx normal, moist mucous membranes Neck Exam: normal inspection, non-tender, supple, full range of motion Respiratory Exam: normal breath sounds, lungs clear, No respiratory distress Cardiovascular Exam: regular rate/rhythm, normal heart sounds Gastrointestinal/Abdomen Exam: soft, No tenderness, No mass Extremity Exam: normal inspection, normal range of motion Back Exam: normal inspection, normal range of motion, No CVA tenderness, No vertebral tenderness Male Genitalia Exam: deferred Rectal Exam: deferred OBJECTIVE DATA Vital Signs: Vital Signs - 24 hr Temp Pulse Resp BP Pulse Ox 04/01/21 07:04 76 16 96 04/01/21 01:46 98.7 F 03/31/21 23:54 101.5 F 120 H 20 134/75 98 03/31/21 22:00 103.0 F 03/31/21 20:00 103.2 F 85 20 151/83 99 03/31/21 19:58 95 H 20 92 L 03/31/21 16:30 95 03/31/21 14:56 98.2 F 84 20 156/98 99 03/31/21 14:41 98.2 F 84 20 156/98 99 03/31/21 14:37 98.2 F 84 20 156/98 99 03/31/21 14:00 92 H 16 151/91 97 03/31/21 13:18 100 03/31/21 13:00 104 H 18 139/92 99 03/31/21 12:04 108 H 18 119/87 96 03/31/21 11:20 117 H 17 129/79 95 03/31/21 10:14 98.5 F 119 H 20 142/103 100 Pain Assessment - Last Documented Pain Intensity 0 Pain Scale Used [facility] Intake and Output: Intake & Output 03/29/21 03/30/21 03/31/21 04/01/21 11:59 11:59 11:59 11:59 Intake Total 2216 Output Total 950 Balance 1266 Weight 87.8 kg 93.6 kg Lab Results: Lab Results-Last 24 Hours 03/31/21 03/31/21 03/31/21 Range/Units 10:11 10:11 10:32 WBC 14.1 H (4.0-10.5) K/mm3 RBC 4.90 (4.1-5.6) M/mm3 Hgb 15.1 (12.5-18.0) gm/dl Hct 44.9 (42-50) % MCV 91.6 (78-100) fl MCH 30.8 (26-32) pg MCHC 33.6 (32-36) g/dl RDW 13.4 (11.5-14.0) % Plt Count 324 (150-450) K/mm3 MPV 10.0 (7.5-11.0) fl Gran % 78.3 H (36.0-66.0) % Eos # (Auto) 0.03 (0-0.5) Absolute Lymphs (auto) 1.56 (1.0-4.6) Absolute Monos (auto) 1.41 H (0.0-1.3) Lymphocytes % 11.1 L (24.0-44.0) % Monocytes % 10.0 (0.0-12.0) % Eosinophils % 0.2 (0.00-5.0) % Basophils % 0.4 (0.0-0.4) % Absolute Granulocytes 11.01 H (1.4-6.9) Basophils # 0.05 (0-0.4) Sodium 136 L (137-145) mmol/L Potassium 4.4 (3.5-5.1) mmol/L Chloride 97 L (98-107) mmol/L Carbon Dioxide 26 (22-30) mmol/L Anion Gap 17.5 H (5-15) MEQ/L BUN 11 (9-20) mg/dL Creatinine 1.39 H (0.66-1.25) mg/dL Estimated GFR > 60.0 ML/MIN Glucose 107 H (74-106) mg/dL Calcium 10.1 (8.4-10.2) mg/dL Total Bilirubin 0.60 (0.2-1.3) mg/dL AST 24 (17-59) U/L ALT 27 (0-50) U/L Alkaline Phosphatase 81 (38-126) U/L Troponin I (0.000-0.034) ng/mL Serum Total Protein 8.3 H (6.3-8.2) g/dL Albumin 4.8 (3.5-5.0) g/dL Lipase 31 (23-300) U/L Urine Color (YELLOW) Urine Appearance (CLEAR) Urine pH (5-6) Ur Specific [place] (1.005-1.025) Urine Protein (Negative) Urine Ketones (NEGATIVE) Urine Blood (0-5) Emiliano/ul Urine Nitrite (NEGATIVE) Urine Bilirubin (NEGATIVE) Urine Urobilinogen (0-1) mg/dL Ur Leukocyte Esterase (NEGATIVE) Urine WBC (Auto) (0-5) /HPF Urine RBC (Auto) (0-2) /HPF U Epithel Cells (Auto) (FEW) /HPF Urine Bacteria (Auto) (NEGATIVE) /HPF Urine Mucus (Auto) (NEGATIVE) /HPF Urine Culture Reflexed (NO) Urine Glucose (NEGATIVE) mg/dL Urine Opiates Level (NEGATIVE) Ur Methadone (NEGATIVE) Urine Barbiturates (NEGATIVE) Ur Phencyclidine (PCP) (NEGATIVE) Urine Amphetamine (NEGATIVE) U Benzodiazepine Level (NEGATIVE) Urine Cocaine (NEGATIVE) Urine Marijuana (THC) (NEGATIVE) SARS-CoV-2 (PCR) (NEGATIVE) 03/31/21 03/31/21 03/31/21 Range/Units 13:16 14:30 14:30 WBC (4.0-10.5) K/mm3 RBC (4.1-5.6) M/mm3 Hgb (12.5-18.0) gm/dl Hct (42-50) % MCV (78-100) fl MCH (26-32) pg MCHC (32-36) g/dl RDW (11.5-14.0) % Plt Count (150-450) K/mm3 MPV (7.5-11.0) fl Gran % (36.0-66.0) % Eos # (Auto) (0-0.5) Absolute Lymphs (auto) (1.0-4.6) Absolute Monos (auto) (0.0-1.3) Lymphocytes % (24.0-44.0) % Monocytes % (0.0-12.0) % Eosinophils % (0.00-5.0) % Basophils % (0.0-0.4) % Absolute Granulocytes (1.4-6.9) Basophils # (0-0.4) Sodium (137-145) mmol/L Potassium (3.5-5.1) mmol/L Chloride (98-107) mmol/L Carbon Dioxide (22-30) mmol/L Anion Gap (5-15) MEQ/L BUN (9-20) mg/dL Creatinine (0.66-1.25) mg/dL Estimated GFR ML/MIN Glucose (74-106) mg/dL Calcium (8.4-10.2) mg/dL Total Bilirubin (0.2-1.3) mg/dL AST (17-59) U/L ALT (0-50) U/L Alkaline Phosphatase (38-126) U/L Troponin I (0.000-0.034) ng/mL Serum Total Protein (6.3-8.2) g/dL Albumin (3.5-5.0) g/dL Lipase (23-300) U/L Urine Color YELLOW (YELLOW) Urine Appearance SLIGHTLY CLOUDY (CLEAR) Urine pH 6.0 (5-6) Ur Specific [place] 1.008 (1.005-1.025) Urine Protein 30 (Negative) Urine Ketones NEGATIVE (NEGATIVE) Urine Blood MODERATE (0-5) Emiliano/ul Urine Nitrite POSITIVE (NEGATIVE) Urine Bilirubin NEGATIVE (NEGATIVE) Urine Urobilinogen NEGATIVE (0-1) mg/dL Ur Leukocyte Esterase MODERATE (NEGATIVE) Urine WBC (Auto) 51-100 (0-5) /HPF Urine RBC (Auto) 3-5 (0-2) /HPF U Epithel Cells (Auto) RARE (FEW) /HPF Urine Bacteria (Auto) MANY (NEGATIVE) /HPF Urine Mucus (Auto) SLIGHT (NEGATIVE) /HPF Urine Culture Reflexed YES (NO) Urine Glucose NEGATIVE (NEGATIVE) mg/dL Urine Opiates Level NEGATIVE (NEGATIVE) Ur Methadone NEGATIVE (NEGATIVE) Urine Barbiturates NEGATIVE (NEGATIVE) Ur Phencyclidine (PCP) NEGATIVE (NEGATIVE) Urine Amphetamine POSITIVE (NEGATIVE) U Benzodiazepine Level POSITIVE (NEGATIVE) Urine Cocaine NEGATIVE (NEGATIVE) Urine Marijuana (THC) POSITIVE (NEGATIVE) SARS-CoV-2 (PCR) NEGATIVE (NEGATIVE) 04/01/21 04/01/21 04/01/21 Range/Units 06:06 06:06 06:06 WBC 12.6 H (4.0-10.5) K/mm3 RBC 4.62 (4.1-5.6) M/mm3 Hgb 13.8 (12.5-18.0) gm/dl Hct 43.1 (42-50) % MCV 93.3 (78-100) fl MCH 29.9 (26-32) pg MCHC 32.0 (32-36) g/dl RDW 13.3 (11.5-14.0) % Plt Count 247 (150-450) K/mm3 MPV 10.3 (7.5-11.0) fl Gran % 79.4 H (36.0-66.0) % Eos # (Auto) 0.02 (0-0.5) Absolute Lymphs (auto) 1.35 (1.0-4.6) Absolute Monos (auto) 1.19 (0.0-1.3) Lymphocytes % 10.7 L (24.0-44.0) % Monocytes % 9.5 (0.0-12.0) % Eosinophils % 0.2 (0.00-5.0) % Basophils % 0.2 (0.0-0.4) % Absolute Granulocytes 10.01 H (1.4-6.9) Basophils # 0.02 (0-0.4) Sodium 137 (137-145) mmol/L Potassium 4.0 (3.5-5.1) mmol/L Chloride 103 (98-107) mmol/L Carbon Dioxide 24 (22-30) mmol/L Anion Gap 14.2 (5-15) MEQ/L BUN 13 (9-20) mg/dL Creatinine 1.22 (0.66-1.25) mg/dL Estimated GFR > 60.0 ML/MIN Glucose 101 (74-106) mg/dL Calcium 9.2 (8.4-10.2) mg/dL Total Bilirubin 0.50 (0.2-1.3) mg/dL AST 31 (17-59) U/L ALT 39 (0-50) U/L Alkaline Phosphatase 71 (38-126) U/L Troponin I < 0.012 (0.000-0.034) ng/mL Serum Total Protein 7.1 (6.3-8.2) g/dL Albumin 4.0 (3.5-5.0) g/dL Lipase (23-300) U/L Urine Color (YELLOW) Urine Appearance (CLEAR) Urine pH (5-6) Ur Specific [place] (1.005-1.025) Urine Protein (Negative) Urine Ketones (NEGATIVE) Urine Blood (0-5) Emiliano/ul Urine Nitrite (NEGATIVE) Urine Bilirubin (NEGATIVE) Urine Urobilinogen (0-1) mg/dL Ur Leukocyte Esterase (NEGATIVE) Urine WBC (Auto) (0-5) /HPF Urine RBC (Auto) (0-2) /HPF U Epithel Cells (Auto) (FEW) /HPF Urine Bacteria (Auto) (NEGATIVE) /HPF Urine Mucus (Auto) (NEGATIVE) /HPF Urine Culture Reflexed (NO) Urine Glucose (NEGATIVE) mg/dL Urine Opiates Level (NEGATIVE) Ur Methadone (NEGATIVE) Urine Barbiturates (NEGATIVE) Ur Phencyclidine (PCP) (NEGATIVE) Urine Amphetamine (NEGATIVE) U Benzodiazepine Level (NEGATIVE) Urine Cocaine (NEGATIVE) Urine Marijuana (THC) (NEGATIVE) SARS-CoV-2 (PCR) (NEGATIVE) Radiology Exams: Radiology Procedures Category Date Time Status ABDOMEN AND PELVIS W/0 CONTRAS [CT] Stat Exams 03/31/21 10:33 Completed Assessment/Plan (1) Acute pyelonephritis Current Visit: Yes Status: Acute Assessment & Plan: Chief Complaint Diagnosis Pyelonephritis/Colitis Allergies Allergy/AdvReac Type Severity Reaction Status Date / Time morphine Allergy Shortness Verified 03/31/21 14:44 of Breath tramadol AdvReac Verified 03/31/21 14:44 Vital Signs (Last 24 hours) Temp Pulse Resp BP Pulse Ox 04/01/21 07:04 76 16 96 04/01/21 01:46 98.7 F 03/31/21 23:54 101.5 F 120 H 20 134/75 98 03/31/21 22:00 103.0 F 03/31/21 20:00 103.2 F 85 20 151/83 99 03/31/21 19:58 95 H 20 92 L 03/31/21 16:30 95 03/31/21 14:56 98.2 F 84 20 156/98 99 03/31/21 14:41 98.2 F 84 20 156/98 99 03/31/21 14:37 98.2 F 84 20 156/98 99 03/31/21 14:00 92 H 16 151/91 97 03/31/21 13:18 100 03/31/21 13:00 104 H 18 139/92 99 03/31/21 12:04 108 H 18 119/87 96 03/31/21 11:20 117 H 17 129/79 95 03/31/21 10:14 98.5 F 119 H 20 142/103 100 Home Medications Medication Instructions Recorded Confirmed Last Taken Type Albuterol Common Canister 2 inh IH QID PRN PRN 03/31/21 03/31/21 03/24/21 History [Ventolin Common Canister] Amlodipine Besylate 5 mg 5 mg PO DAILY 03/31/21 03/31/21 03/31/21 History [Norvasc 5 mg] Benazepril HCl 10 mg [Lotensin 10 mg PO DAILY 03/31/21 03/31/21 03/31/21 History 10 MG] Diazepam [Valium] 10 mg PO TID 03/31/21 03/31/21 03/30/21 22:00 History Divalproex Sodium [Divalproex 1,000 mg PO DAILY 03/31/21 03/31/21 03/30/21 History Sodium ER] Trazodone HCl 150 mg PO HS 03/31/21 03/31/21 03/30/21 History Current Medications Generic Name Dose Route Start Last Admin Trade Name Freq PRN Reason Stop Dose Admin Acetaminophen 650 mg 03/31/21 14:37 04/01/21 01:41 Acetaminophen 325 Mg Tablet PO 04/30/21 14:36 650 mg Q4H PRN PRN Administration PAIN AND/OR FEVER Albuterol/Ipratropium 3 ml 03/31/21 14:37 04/01/21 07:02 Ipratropium/Albuterol Sulfate 3 Ml Ampul.Neb IH 04/30/21 14:36 3 ml Q4HPRN PRN Administration SHORTNESS OF BREATH/WHEEZING Amlodipine Besylate 5 mg 04/01/21 10:00 Amlodipine Besylate 5 Mg Tablet PO 05/01/21 09:59 DAILY KANE Benazepril HCl 10 mg 04/01/21 10:00 Benazepril Hcl 10 Mg Tablet PO 05/01/21 09:59 DAILY KANE Calcium Carbonate/Glycine 1,500 mg 04/01/21 05:17 04/01/21 05:19 Calcium Carbonate 750 Mg 750 Mg Tab.Chew PO 05/01/21 05:16 1,500 mg Q2H PRN PRN Administration GERD Diazepam 10 mg 03/31/21 16:00 04/01/21 05:43 Diazepam 5 Mg Tablet PO 04/30/21 15:59 10 mg TID KANE Administration Divalproex Sodium 1,000 mg 04/01/21 10:00 Divalproex Sodium 250 Mg Tab Extended Release PO 05/01/21 09:59 DAILY KANE Sodium Chloride 1,000 mls @ 100 mls/hr 03/31/21 14:37 04/01/21 01:41 Sodium Chloride 0.9% 1000 Ml IV 04/30/21 14:36 100 mls/hr .Q10H KANE Administration Ceftriaxone Sodium/Dextrose 2 g in 50 mls @ 100 mls/hr 04/01/21 10:00 Rocephin 2 Gm-D5w 50ml Bag IV 04/04/21 09:59 Q24H10 KANE Ibuprofen 400 mg 03/31/21 21:59 03/31/21 22:01 Ibuprofen 400 Mg Tablet PO 04/30/21 21:58 400 mg Q4H PRN PRN Administration FEVER Ondansetron HCl 4 mg 03/31/21 14:37 Ondansetron Hcl 4 Mg/2 Ml Vial IV 04/30/21 14:36 Q6H PRN PRN NAUSEA/VOMITING Pantoprazole Sodium 40 mg 04/01/21 10:00 04/01/21 05:37 Pantoprazole 40 Mg Vial IV 05/01/21 09:59 40 mg Q24H10 KANE Administration Trazodone HCl 150 mg 03/31/21 22:00 03/31/21 21:54 Trazodone Hcl 150 Mg Tablet PO 04/30/21 21:59 50 mg HS KANE Administration Discontinued Medications Generic Name Dose Route Start Last Admin Trade Name Juniorq PRN Reason Stop Dose Admin Sodium Chloride 1,000 mls @ 999 mls/hr 03/31/21 10:32 03/31/21 11:39 Sodium Chloride 0.9% 1000 Ml IV 03/31/21 11:32 Infused .Q1H1M STA Infusion Sodium Chloride Confirm 03/31/21 10:35 Sodium Chloride 0.9% 1000 Ml Administered 03/31/21 10:36 Dose 1,000 mls @ ud .ROUTE .STK-MED ONE Sodium Chloride 1,000 mls @ 999 mls/hr 03/31/21 12:07 03/31/21 13:12 Sodium Chloride 0.9% 1000 Ml IV 03/31/21 13:07 Infused .Q1H1M STA Infusion Sodium Chloride Confirm 03/31/21 12:11 Sodium Chloride 0.9% 1000 Ml Administered 03/31/21 12:12 Dose 1,000 mls @ ud .ROUTE .STK-MED ONE Ceftriaxone Sodium/Dextrose 2 g in 50 mls @ 100 mls/hr 03/31/21 12:22 03/31/21 13:25 Rocephin 2 Gm-D5w 50ml Bag IV 03/31/21 12:51 Infused STAT STA Infusion Ceftriaxone Sodium/Dextrose Confirm 03/31/21 13:09 Rocephin 2 Gm-D5w 50ml Bag Administered 03/31/21 13:10 Dose 2 g in 50 mls @ ud IV .STK-MED ONE Ketorolac Tromethamine 30 mg 03/31/21 10:32 03/31/21 10:38 Ketorolac Tromethamine 30 Mg/Ml Inj IV 03/31/21 10:33 30 mg STAT ONE Administration Ketorolac Tromethamine Confirm 03/31/21 10:35 Ketorolac Tromethamine 30 Mg/Ml Inj Administered 03/31/21 10:36 Dose 30 mg .ROUTE .STK-MED ONE Ondansetron HCl 4 mg 03/31/21 10:32 03/31/21 10:38 Ondansetron Hcl 4 Mg/2 Ml Vial IV 03/31/21 10:33 4 mg STAT ONE Administration Ondansetron HCl Confirm 03/31/21 10:35 Ondansetron Hcl 4 Mg/2 Ml Vial Administered 03/31/21 10:36 Dose 4 mg .ROUTE .STK-MED ONE Pantoprazole Sodium Confirm 04/01/21 05:33 Pantoprazole 40 Mg Vial Administered 04/01/21 05:34 Dose 40 mg IV .STK-MED ONE Intake & Output (Last 24 hours) 03/29/21 03/30/21 03/31/21 04/01/21 11:59 11:59 11:59 11:59 Intake Total 2216 Output Total 950 Balance 1266 Weight 87.8 kg 93.6 kg Microbiology Results (Last 24 hours) 03/31/21 14:30 Clean Catch Midstream Urine Culture - Preliminary GRAM NEGATIVE ID AND SENSITIVITY PENDING 03/31/21 12:37 Blood Blood Culture Gram Stain - Pending 03/31/21 12:37 Blood Blood Culture - Pending 03/31/21 12:32 Blood Blood Culture Gram Stain - Pending 03/31/21 12:32 Blood Blood Culture - Pending Laboratory Results (Last 24 hours) 04/01/21 04/01/21 04/01/21 06:06 06:06 06:06 WBC 12.6 H RBC 4.62 Hgb 13.8 Hct 43.1 MCV 93.3 MCH 29.9 MCHC 32.0 RDW 13.3 Plt Count 247 MPV 10.3 Gran % 79.4 H Eos # (Auto) 0.02 Absolute Lymphs (auto) 1.35 Absolute Monos (auto) 1.19 Lymphocytes % 10.7 L Monocytes % 9.5 Eosinophils % 0.2 Basophils % 0.2 Absolute Granulocytes 10.01 H Basophils # 0.02 Sodium 137 Potassium 4.0 Chloride 103 Carbon Dioxide 24 Anion Gap 14.2 BUN 13 Creatinine 1.22 Estimated GFR > 60.0 Glucose 101 Calcium 9.2 Total Bilirubin 0.50 AST 31 ALT 39 Alkaline Phosphatase 71 Troponin I < 0.012 Serum Total Protein 7.1 Albumin 4.0 Lipase Urine Color Urine Appearance Urine pH Ur Specific [place] Urine Protein Urine Ketones Urine Blood Urine Nitrite Urine Bilirubin Urine Urobilinogen Ur Leukocyte Esterase Urine WBC (Auto) Urine RBC (Auto) U Epithel Cells (Auto) Urine Bacteria (Auto) Urine Mucus (Auto) Urine Culture Reflexed Urine Glucose Urine Opiates Level Ur Methadone Urine Barbiturates Ur Phencyclidine (PCP) Urine Amphetamine U Benzodiazepine Level Urine Cocaine Urine Marijuana (THC) SARS-CoV-2 (PCR) 03/31/21 03/31/21 03/31/21 14:30 14:30 13:16 WBC RBC Hgb Hct MCV MCH MCHC RDW Plt Count MPV Gran % Eos # (Auto) Absolute Lymphs (auto) Absolute Monos (auto) Lymphocytes % Monocytes % Eosinophils % Basophils % Absolute Granulocytes Basophils # Sodium Potassium Chloride Carbon Dioxide Anion Gap BUN Creatinine Estimated GFR Glucose Calcium Total Bilirubin AST ALT Alkaline Phosphatase Troponin I Serum Total Protein Albumin Lipase Urine Color YELLOW Urine Appearance SLIGHTLY CLOUDY Urine pH 6.0 Ur Specific [place] 1.008 Urine Protein 30 Urine Ketones NEGATIVE Urine Blood MODERATE Urine Nitrite POSITIVE Urine Bilirubin NEGATIVE Urine Urobilinogen NEGATIVE Ur Leukocyte Esterase MODERATE Urine WBC (Auto) 51-100 Urine RBC (Auto) 3-5 U Epithel Cells (Auto) RARE Urine Bacteria (Auto) MANY Urine Mucus (Auto) SLIGHT Urine Culture Reflexed YES Urine Glucose NEGATIVE Urine Opiates Level NEGATIVE Ur Methadone NEGATIVE Urine Barbiturates NEGATIVE Ur Phencyclidine (PCP) NEGATIVE Urine Amphetamine POSITIVE U Benzodiazepine Level POSITIVE Urine Cocaine NEGATIVE Urine Marijuana (THC) POSITIVE SARS-CoV-2 (PCR) NEGATIVE 03/31/21 03/31/21 03/31/21 10:32 10:11 10:11 WBC 14.1 H RBC 4.90 Hgb 15.1 Hct 44.9 MCV 91.6 MCH 30.8 MCHC 33.6 RDW 13.4 Plt Count 324 MPV 10.0 Gran % 78.3 H Eos # (Auto) 0.03 Absolute Lymphs (auto) 1.56 Absolute Monos (auto) 1.41 H Lymphocytes % 11.1 L Monocytes % 10.0 Eosinophils % 0.2 Basophils % 0.4 Absolute Granulocytes 11.01 H Basophils # 0.05 Sodium 136 L Potassium 4.4 Chloride 97 L Carbon Dioxide 26 Anion Gap 17.5 H BUN 11 Creatinine 1.39 H Estimated GFR > 60.0 Glucose 107 H Calcium 10.1 Total Bilirubin 0.60 AST 24 ALT 27 Alkaline Phosphatase 81 Troponin I Serum Total Protein 8.3 H Albumin 4.8 Lipase 31 Urine Color Urine Appearance Urine pH Ur Specific [place] Urine Protein Urine Ketones Urine Blood Urine Nitrite Urine Bilirubin Urine Urobilinogen Ur Leukocyte Esterase Urine WBC (Auto) Urine RBC (Auto) U Epithel Cells (Auto) Urine Bacteria (Auto) Urine Mucus (Auto) Urine Culture Reflexed Urine Glucose Urine Opiates Level Ur Methadone Urine Barbiturates Ur Phencyclidine (PCP) Urine Amphetamine U Benzodiazepine Level Urine Cocaine Urine Marijuana (THC) SARS-CoV-2 (PCR) Orders (Last 24 hours) Category Date Time Status Bedrest ROUTINE Activity 03/31/21 14:37 Active Up With Assistance ROUTINE Activity 03/31/21 14:37 Active Code Status Order ROUTINE Care 03/31/21 14:37 Active Fall Protocol Q1H Care 03/31/21 14:37 Active IV Care Q6H Care 03/31/21 14:37 Active IV Insertion STAT Care 03/31/21 10:11 Completed NPO (ED) STAT Care 03/31/21 10:[address] in Observation ROUTINE Care 03/31/21 14:37 Active Byron Ricardo, Bill ROUTINE Care 03/31/21 14:37 Active Home Service Consultant/Discharge Plan ROUTINE Cons 03/31/21 14:56 Active House Regular Diet Diet 03/31/21 Dinner Active ABDOMEN AND PELVIS W/0 CONTRAS [CT] Stat Exams 03/31/21 10:33 Completed BLOOD CULTURE Stat Lab 03/31/21 12:37 Received CBC W DIFF AM.LAB Lab 04/01/21 06:06 Completed CBC W DIFF Stat Lab 03/31/21 10:11 Completed CMP AM.LAB Lab 04/01/21 06:06 Completed CMP Stat Lab 03/31/21 10:11 Completed CULTURE,URINE Stat Lab 03/31/21 14:30 Results LIPASE Stat Lab 03/31/21 10:32 Completed TROPONIN Stat Lab 04/01/21 06:06 Completed UA W/RFX UR CULTURE Stat Lab 03/31/21 14:30 Completed Urine Triage Profile Stat Lab 03/31/21 14:30 Completed Acetaminophen 325 mg [Tylenol 325 mg] Med 03/31/21 14:37 Active 650 mg PO Q4H PRN PRN Albuterol/Ipratropium 3ml Neb* [DUONEB 0.5-3 MG/3 ml Med 03/31/21 14:37 Active Neb] 3 ml IH Q4HPRN PRN Amlodipine Besylate 5 mg [Norvasc 5 mg] Med 04/01/21 10:00 Active 5 mg PO DAILY Benazepril HCl 10 mg [Lotensin 10 MG] Med 04/01/21 10:00 Active 10 mg PO DAILY Calcium Carbonate 750 mg [Tums EX 750 MG] Med 04/01/21 05:17 Active 1,500 mg PO Q2H PRN PRN Ceftriaxone 2 GM/50 ML PREMIX* [ROCEPHIN 2 Gm-D5w 50ML Med 04/01/21 10:00 Active BAG] 2 g in 50 ml IV Q24H10 Ceftriaxone 2 GM/50 ML PREMIX* [ROCEPHIN 2 Gm-D5w 50ML Med 03/31/21 12:22 Discontinued BAG] 2 g in 50 ml IV STAT Ceftriaxone 2 GM/50 ML PREMIX* [ROCEPHIN 2 Gm-D5w 50ML Med 03/31/21 13:09 Discontinued BAG] 2 g in 50 ml IV UD Diazepam 5 mg [Valium 5 MG] Med 03/31/21 16:00 Active 10 mg PO TID Divalproex Sodium ER 250 mg [Depakote EXTENDED Med 04/01/21 10:00 Active RELEASE 250 MG] 1,000 mg PO DAILY Ibuprofen 400 mg [Motrin 400 mg] Med 03/31/21 21:59 Active 400 mg PO Q4H PRN PRN KETOROLAC trometh 30 mg Inj [TORAdol 30 mg Injection Med 03/31/21 10:35 Discontinued ] 30 mg .ROUTE .STK-MED ONE KETOROLAC trometh 30 mg Inj [TORAdol 30 mg Injection Med 03/31/21 10:32 Discontinued ] 30 mg IV STAT ONE NaCl 0.9% 1000 ml [Sodium Chloride 0.9% 1000 ML] 1,000 Med 03/31/21 10:35 Discontinued ml .ROUTE UD NaCl 0.9% 1000 ml [Sodium Chloride 0.9% 1000 ML] 1,000 Med 03/31/21 12:11 Discontinued ml .ROUTE UD NaCl 0.9% 1000 ml [Sodium Chloride 0.9% 1000 ML] 1,000 Med 03/31/21 14:37 Active ml IV 100 mls/hr NaCl 0.9% 1000 ml [Sodium Chloride 0.9% 1000 ML] 1,000 Med 03/31/21 10:32 Discontinued ml IV 999 mls/hr NaCl 0.9% 1000 ml [Sodium Chloride 0.9% 1000 ML] 1,000 Med 03/31/21 12:07 Discontinued ml IV 999 mls/hr Ondansetron HCl 4 mg/2 ml [Zofran 4 MG/2 ML VIAL] Med 03/31/21 10:35 Discontinued 4 mg .ROUTE .STK-MED ONE Ondansetron HCl 4 mg/2 ml [Zofran 4 MG/2 ML VIAL] Med 03/31/21 14:37 Active 4 mg IV Q6H PRN PRN Ondansetron HCl 4 mg/2 ml [Zofran 4 MG/2 ML VIAL] Med 03/31/21 10:32 Discontinued 4 mg IV STAT ONE Pantoprazole 40 mg [Protonix 40 mg IV] Med 04/01/21 05:33 Discontinued 40 mg IV .STK-MED ONE Pantoprazole 40 mg [Protonix 40 mg IV] Med 04/01/21 10:00 Active 40 mg IV Q24H10 Trazodone HCl 150 mg [Desyrel 150 MG] Med 03/31/21 22:00 Active 150 mg PO HS Pulse Oximetry .spot check RT 03/31/21 16:30 Active Respiratory Therapy Assessment DAILY RT 03/31/21 16:30 Active Patient Care Notes (Last 24 hours) 04/01/21 05:59 Nursing Note by Mark Alonzo Pt c/o severe heartburn. Tums given. Pt stated that it did help but still had heartburn. Protonix IV ordered for 1000 as first dose. Gave early. Initialized on 04/01/21 05:59 - END OF NOTE 03/31/21 23:55 DEPENDENCY CASE MANAGER Note by Hien Cerna RN aware of pts temp being 101.5 Initialized on 03/31/21 23:55 - END OF NOTE 03/31/21 22:06 Nursing Note by Mark Alonzo Temp at 1950 after Tylenol was 102.4, still 103.0 at 2200, Notified Dr Viera who ordered ibuprofen 400 mg q4h prn to alternate with Tylenol. Initialized on 03/31/21 22:06 - END OF NOTE 03/31/21 18:40 Nursing Note by Su Gramajo CNA reported temperature 105 with temporal scan thermometer and 103 with oral. This nurse rechecked and found 103.1 orally. Tylenol given at this time Initialized on 03/31/21 18:40 - END OF NOTE Code(s): N10 - ACUTE PYELONEPHRITIS (2) Bipolar affective disorder Current Visit: Yes Status: Chronic Qualifiers: Active/Remission status: remission status unspecified Qualified Code(s): F31.9 - Bipolar disorder, unspecified Code(s): F31.9 - BIPOLAR DISORDER, UNSPECIFIED (3) Hypertension Current Visit: Yes Status: Acute Qualifiers: Hypertension type: primary hypertension Qualified Code(s): I10 - Essential (primary) hypertension Code(s): I10 - ESSENTIAL (PRIMARY) HYPERTENSION
[2021-04-01] MEDS: MOTRIN 400 MG PO PRN (08:21)
[2021-04-01] MEDS: Lotensin 10 MG PO SCH (09:32)
[2021-04-01] MEDS: Depakote EXTENDED RELEASE 250 MG PO SCH ×2 (09:32→09:34)
[2021-04-01] MEDS: NORVASC 5 MG PO SCH (09:32)
[2021-04-01] MEDS ORDERED: ROCEPHIN 2 Gm-D5w 50ML BAG** 2 G/50 ML IVPB IV SCH (10:00)
[2021-04-01] MEDS ORDERED: NON-FORMULARY ITEM (Divalproex Sodium [Divalproex Sodium Er] 500 MG Tab.Er.24h) PO SCH (10:00)
[2021-04-01] MEDS ORDERED: VENTOLIN COMMON CANISTER IH PRN (18:50)
[2021-04-01] MEDS: Desyrel 150 MG PO SCH (21:36)
[2021-04-02] MEDS: TYLENOL 325 MG PO PRN (03:22)
[2021-04-02 05:30] LABS: Hematocrit 36.2 % (42-50); Hemoglobin 11.9 gm/dl (12.5-18.0); Mean Cell Volume 91.9 fl (78-100); Mean Corpuscular Hemoglobin 30.2 pg (26-32); Mean Corpuscular Hgb Concent. 32.9 g/dl (32-36); Mean Platelet Volume 10.7 fl (7.5-11.0); Platelet Count 225 K/mm3 (150-450); Red Blood Count 3.94 M/mm3 (4.1-5.6); Red Cell Distribution Width 13.3 % (11.5-14.0); White Blood Count 10.2 K/mm3 (4.0-10.5)
[2021-04-02] MEDS: Sodium Chloride 0.9% 1000 ML 1,000 ML IV SCH (05:37)
[2021-04-02 05:52] LABS: ALBUMIN 3.6 g/dL (3.5-5.0); ALKALINE PHOSPHATASE 78 U/L (38-126); ANION GAP 12.8 MEQ/L (5-15); BLOOD UREA NITROGEN 10 mg/dL (9-20); CHLORIDE 106 mmol/L (98-107); Carbon Dioxide 22 mmol/L (22-30); EST GLOMERULAR FILTRATION RATE > 60.0 ML/MIN; Glucose 97 mg/dL (74-106); Potassium 3.9 mmol/L (3.5-5.1); SGOT/AST 51 U/L (17-59); SGPT/ALT 61 U/L (0-50); SODIUM 136 mmol/L (137-145); Total Protein 6.5 g/dL (6.3-8.2)
[2021-04-02 07:54] VITALS: BP 121/74; PULSE 78; O2SAT 98
[2021-04-02] MEDS ORDERED: Levofloxacin 500MG/100ML D5W 500 MG/100 ML BAG IV SCH (09:15)
[2021-04-02] MEDS: PROTONIX 40 MG IV IV SCH (09:20)
[2021-04-02] MEDS: Valium 5 MG PO SCH (09:20)
[2021-04-02] MEDS: Lotensin 10 MG PO SCH (09:20)
[2021-04-02] MEDS: NORVASC 5 MG PO SCH (09:21)
[2021-04-02] MEDS: Depakote EXTENDED RELEASE 250 MG PO SCH (09:21)
[2021-04-02] MEDS: MOTRIN 400 MG PO PRN (10:45)
== END 2021-04-02 10:58 | disposition home or self-care (01) ==
LOC: ED 10:05 → MED SURG 14:36
PROVIDERS: ADMIT General Practice; ATTEND General Practice
DX: N10 Acute pyelonephritis (principal); R10.32 Left lower quadrant pain; R10.31 Right lower quadrant pain; Z79.899 Other long term (current) drug therapy; I10 Essential (primary) hypertension; F31.9 Bipolar disorder, unspecified; Z20.822 Contact with and (suspected) exposure to COVID-19
CPT/HCPCS: 36000; 36415; 74176; 80053; 80307; 81001; 83690; 84484; 85025; 85027; 87040; 87077; 87086; 87186; 94640; 94760; 96374; 96375; 99285; U0003; G0378; J0696; J1885; J1956; J2405; A9270-GY